=== PATIENT | male | born 1975 | race Two or more races ===

== ENCOUNTER 2024-04-06 13:25 | Day surgery (SDC) | payer MEDICARE, MEDICAID, SELFPAY ==
[2024-04-06] VITALS (10 sets, daily range): BP systolic 120–172; BP diastolic 81–119; PULSE 82–109; RESP 17–28; TEMP 36.2–36.6; O2SAT 95–99; BMI 30.9
--- NOTE | 2024-04-06 14:17 | SUR.PREOP ---
PATIENT ALERT AND ORIENTED . 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
[2024-04-06] MEDS: SODIUM CHLORIDE 0.9% 100 ML 20 ML IV (14:50)
[2024-04-06] MEDS: fentaNYL CIT INJ 50 mCg/ML AMP 2ML (ASD USE ONLY) IV (14:54)
[2024-04-06] MEDS: MIDAZOLAM INJ 1 MG/ML VIAL 2 ML (ASD USE ONLY) 2 MG IV (15:02)
== END 2024-04-06 16:05 | disposition home or self-care (01) ==
PROVIDERS: PCP Physician Assistant; Referring Provider Surgery; Visit Provider Surgery
PROC: 0DBE8ZX Excision of Large Intestine, Via Natural or Artificial Opening Endoscopic, Diagnostic (ICD-10-PCS; CPT 45380; principal; 2024-04-06 14:30)
DX: Z12.11 Encounter for screening for malignant neoplasm of colon (principal)
CPT/HCPCS: G0121; A4217; J2250; J3010; J7050